=== PATIENT | female | born 1975 | race Caucasian/White ===

== ENCOUNTER 2019-06-30 12:04 | Emergency (ER) | payer BC ==
[~2019-06-30] VITALS: Ht 165.1 cm; Wt 58.1 kg
[2019-06-30 12:14] VITALS: Ht 165.1 cm; Wt 58.1 kg
[2019-06-30 13:41] LABS: BASOPHIL % 0.6 % (0-2); PLATELET COUNT 307 x10^3mcL (130-400); RED CELL DISTRIBUTION WIDTH 22.6 % (11.5-14.5)
[2019-06-30 14:05] LABS: CALCIUM 8.9 mg/dL (8.5-10.1); CARBON DIOXIDE 24.6 mmol/L (21-32); CHLORIDE SERUM 106 mmol/L (98-107); CREATININE SERUM 0.6 mg/dL (0.6-1.0); GFR1 > 60 mL/min; GLUCOSE SERUM 92 mg/dL (74-106); POTASSIUM SERUM 4.3 mmol/L (3.5-5.1); SODIUM SERUM 141 mmol/L (136-145)
[2019-06-30 14:10] LABS: ALBUMIN 3.7 g/dL (3.4-5.0); ALKALINE PHOSPHATASE 109 U/L (46-116); ALT/SGPT 17 U/L (14-59); AST/SGOT 14 U/L (15-37); BILIRUBIN TOTAL 0.21 mg/dL (0.20-1.00); TOTAL PROTEIN, SERUM 7.3 g/dL (6.4-8.2)
[2019-06-30 16:49] VITALS: BP 132/83
== END 2019-06-30 16:49 | disposition home or self-care (01) ==
LOC: ED 12:04
PROVIDERS: Emergency Medicine
DX: N93.8 Other specified abnormal uterine and vaginal bleeding (principal); N39.0 Urinary tract infection, site not specified; D25.9 Leiomyoma of uterus, unspecified
CPT/HCPCS: 36415